=== PATIENT | female | born 1995 | race Caucasian/White ===

== ENCOUNTER 2020-12-29 14:43 | Emergency (ER) | payer OTHER ==
[~2020-12-29] VITALS: Ht 180.3 cm; Wt 82.6 kg
--- NOTE | 2020-12-29 15:36 | NUR ---
pt presents to ed with c/o generalized abd pain x3 days. pt states she is visiting from [place], denies n/v/c/d. denies urinary sx. pt a&o, resps even and unlabored, manjit, varunn.
[2020-12-29 16:01] LABS: BASOPHILS % (AUTO) 0 % (0-1); EOSINOPHILS % (AUTO) 3 % (1-7); LYMPHOCYTES % (AUTO) 22 % (22-44); MEAN CORPUSCULAR HEMOGLOBIN 28.9 pg (27.0-34.8); MEAN CORPUSCULAR HGB CONC 33.3 g/dL (32.4-35.8); MEAN PLATELET VOLUME 10.1 fL (7.4-10.4); MONOCYTES % (AUTO) 14 % (2-9); NEUTROPHILS % (AUTO) 60 % (42-75); PLATELET COUNT 190 x10^3/uL (130-400); RED BLOOD COUNT 2.98 x10^6/uL (3.82-5.3); RED CELL DISTRIBUTION WIDTH 13.3 % (9.6-15.2)
--- NOTE | 2020-12-29 16:01 | NUR ---
US AT BEDSIDE
[2020-12-29 16:11] LABS: ALBUMIN 3.7 g/dL (3.4-5.0); ANION GAP 5 mmol/L (5-15); CALCIUM 8.6 mg/dL (8.5-10.1); CHLORIDE 105 mmol/L (98-107); CREATININE 0.63 mg/dL (0.55-1.02)
[2020-12-29 16:12] LABS: MICROSCOPIC NOT IND
[2020-12-29 16:15] LABS: TROPONIN I < 0.015 ng/mL (0.000-0.045)
--- NOTE | 2020-12-29 17:06 | NUR ---
PIV placed for CTA. pt a&o, resps even and unlabored, vss, nadn.
[2020-12-29] MEDS ORDERED: KETOROLAC 30 MG/1 ML IVPush ONE (17:30)
[2020-12-29 17:37] VITALS: BP 117/70
[2020-12-29] MEDS ORDERED: OMNIPAQUE 350 MG/ML, 75ML BOTTLE ONE (17:47)
--- NOTE | 2020-12-29 17:48 | NUR ---
pt back from ct at this time, a&o, resps even and unlabored, stephens, varunn.
--- NOTE | 2020-12-29 18:30 | NUR ---
pt eductaed on dc instructions, verbalized understanding. ambulatory to dc desk with steady gait.
== END 2020-12-29 18:32 | disposition home or self-care (01) ==
LOC: ED 15:13
DX: R10.32 Left lower quadrant pain (principal); R07.89 Other chest pain; N83.292 Other ovarian cyst, left side
CPT/HCPCS: 36415; 71275; 76830; 80048; 81003; 82040; 83880; 84484; 84703; 85025; 85379; 99285; Q9967